=== PATIENT | female | born 1950 | race Caucasian/White ===

== ENCOUNTER → 2019-08-14 14:15 | Outpatient (CLI) | payer MEDICARE, OTHER, SELFPAY ==
--- NOTE | 2019-08-14 | FLU_PTH ---
PATIENT: BULMARO LARA LOC: [facility] U#:[id number] AGE/SX: 74/F ROOM: RE08/14/[address]: Monie Baker : 1950 BED: DIS: SPEC #: [id number] RECD: 08/15/19 11:42 STATUS: JAKOB ARVIND #: [id number] IKER: 08/14/19 00:[address]: Monie Baker DEPT: CYTOLOGY RECD BY: Maureen Bates ENTERED: 08/15/19 11:45 SP TYPE: Fluid OTHR DR: Dr. Salvador Patel MD Tissues: Urine Procedures: Special Stain Group II Surgery Specimen Level IV Cytospin Fluid HEADER OPERATION: Not noted PRE-OP DIAGNOSIS: Gross hematuria TISSUE SUBMITTED: Urine for cytology DIAGNOSIS CYTOLOGY Urine for cytology (cytospin): Negative for malignant cells. Mild acute inflammation. See cytology study and comment. SJ:ramon 08/16/19 COMMENT Clinical correlation and appropriate follow up are necessary. CYTOLOGY STUDY Slides are reviewed. The specimen predominantly consists of benign squamous cells and neutrophils. CYTOLOGY GROSS Received is 50 ml of yellow cloudy fluid labeled with the patient's name and and designated per the requisition as urine. Submitted for cytology preparation. /CC:cc 08/15/19 TC:2 [facility]: [id number]
[2019-08-15 14:15] LABS: Cytology, Body Fluid / CSF SEE PATHOLOGY REPORT
== END ==
PROVIDERS: Family Provider Family Medicine; PCP Family Medicine
DX: R31.0 Gross hematuria (principal)
CPT/HCPCS: 87086; 88108; 88305; 88313

== ENCOUNTER → 2025-07-02 | Outpatient (CLI) | payer MEDICARE, OTHER, SELFPAY ==
--- NOTE | 2025-07-02 14:21 | RAD_ITS ---
PROCEDURE: CHEST PA AND LATERAL 07/02/2025 REASON FOR EXAM: [facility] DRUG THERAPY TECHNIQUE: Procedure Code: RADCXR Modality: DX Procedure: CHEST PA AND LATERAL COMPARISON: None FINDINGS: No focal consolidation. No pleural effusion or pneumothorax. Cardiac silhouette is within normal limits. No acute fractures. RAD/Chest PA and Lateral IMPRESSION: No focal consolidations. Reading Location: [id number]
--- NOTE | 2025-07-02 14:21 | RAD_ITS ---
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 soft tissues: Soft tissues are unremarkable. Other: Disc space narrowing in the lower lumbar spine. RAD/Pelvis 1 or 2 Views IMPRESSION: Joint space narrowing of both hip joints. Reading Location: [place] [id number]
[2025-07-02 17:57] LABS: Hematocrit 44.8 % (37-47); Hemoglobin 14.8 g/dL (12.0-15.0); Immature Granulocytes Count 0.020 X10^3/uL (0.0-0.0); Mean Corp Hgb Conc 33.0 g/dL (32-36); Mean Corpuscular Volume 89.6 fL (81-99); Mean Platelet Vol. 11.1 fl (6.2-12.0); NRBC Flagged by Analyzer 0 % (0-5); Platelet Count 257 K/mm3 (150-450); RBC Distribution Width CV 13.2 % (11.6-14.6); RBC Distribution Width SD 42.9 fl (35.1-43.9); Red Blood Count 5.00 M/mm3 (4.2-5.4); White Blood Count 8.8 K/mm3 (4.4-11.0)
[2025-07-02 18:59] LABS: AST(SGOT) 27 U/L (<=31); Alanine Aminotransfer ALT/SGPT 17 U/L (<=34); Albumin, Serum 4.2 g/dL (3.4-4.8); Alkaline Phosphatase 83 U/L (35-104); Anion Gap 16 (5-15); BUN 22 mg/dL (4-19); BUN/Creat Ratio 23.6 RATIO (10-20); Calcium,Total 10.2 mg/dL (7.6-11.0); Carbon Dioxide 26.9 mmol/L (21.0-32.0); Chloride 97 mmol/L (98-108); Globulin 3.0 g/dL (2.2-4.2); Glucose 130 mg/dL (70-99); Hepatitis B Surface Antigen Nonreactive (Nonreactive); Hepatitis C Antibody Nonreactive (Nonreactive); Potassium 3.6 mmol/L (3.3-5.1)
[2025-07-02 19:00] LABS: CRP < 3.00 mg/L (0.0-3.0)
[2025-07-04 12:08] LABS: QNTFERON TB Mitogen Value > 10.00 IU/mL (.); QNTFERON TB Nil Value 0.04 IU/mL (.); QNTFERON TB1+ Ag Value 0.04 IU/mL (.); QNTFERON TB2+ Ag Value 0.05 IU/mL (.); QNTIFERON TB Positive Criteria Negative (Negative)
[2025-07-05 07:08] LABS: ANTINUCLEAR ANTIBODIES DIRECT Negative (Negative)
== END | disposition home or self-care (01) ==
PROVIDERS: PCP Family Medicine; Referring Provider Internal Medicine Rheumatology; Visit Provider Internal Medicine Rheumatology
DX: Z79.899 Other long term (current) drug therapy (principal)
CPT/HCPCS: 36415; 71046; 72170; 80053; 85025; 85652; 86038; 86140; 86200; 86431; 86480; 86706; 86803; 87340